=== PATIENT | female | born 1970 ===

== ENCOUNTER 2017-02-16 09:20 | Day surgery (SDC) | payer MEDICAID ==
[2017-02-14 09:30] VITALS: BMI 30.2
[2017-02-16 10:34] VITALS: O2SAT 100
[2017-02-16] MEDS ORDERED: Midazolam 2 MG/2 ML VIAL ONE (13:10)
[2017-02-16] MEDS ORDERED: Lidocaine Hydrochloride 5 ML INJ ONE (13:10)
[2017-02-16] MEDS ORDERED: Propofol 10 mg/ml Inj (20 ML) ONE (13:10)
[2017-02-16] MEDS ORDERED: ceFAZolin IV 1 gm in Dextrose 1 GM/50 ML BAG IVPB ONE (13:19)
[2017-02-16] MEDS ORDERED: Lactated Ringer's 1,000 ML IV ONE ×2 (13:20→14:14)
[2017-02-16] MEDS ORDERED: Oxycodone/Acetaminophen 5/325 mg Tab PO PRN (14:22)
[2017-02-16] MEDS: HYDROmorphone 0.5 mg/0.5 ml ISec IVP PRN ×2 (14:25→14:42)
[2017-02-16 16:04] VITALS: PULSE 58
[2017-02-16 16:11] VITALS: BP 126/77; RESP 18; TEMP 97
--- NOTE | 2017-02-17 09:58 | OP ---
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 PROCEDURE: Wide deep excision of vascular neoplasm of the lower extremity x2 (5 cm and 3 cm). SURGEON: Sunny Coughlin MD TYPE OF ANESTHESIA: General. ESTIMATED BLOOD LOSS: 50 mL POSTOPERATIVE CONDITION: Stable. INDICATIONS FOR SURGERY: This 47-year-old female presented with two painful hemangiomas of her right lower extremity. She will now undergo wide and deep excision of each one. DESCRIPTION OF PROCEDURE: The patient was taken to the operating room, general anesthesia was administered, she was placed in the left lateral decubitus position with the medial portion of her leg facing upward. The left leg was then prepped and draped and elliptical incision was made surrounding the 5 cm neoplasm. It was dissected into the fascial layer and removed. Bleeding was controlled using the Bovie. Larger blood vessel was repaired. Generous tissue flaps were raised and advancement flap closure measuring about 36 sq cm was performed using multiple layers of subcuticular Monocryl and glue. The above was repeated on a smaller 3 cm lesion, approximately 10 cm distal to it. The patient tolerated the procedure well and returned to the recovery room in stable condition. Sunny Coughlin MD
== END 2017-02-16 16:28 | disposition home or self-care (01) ==
LOC: C.SDS 09:20
PROVIDERS: ATTEND Surgery
DX: D18.01 Hemangioma of skin and subcutaneous tissue (principal); I83.91 Asymptomatic varicose veins of right lower extremity
CPT/HCPCS: 11406; 88305; J0690; J1170; J2250; J2405; J2704; J3010; J7120

== ENCOUNTER 2017-12-04 01:41 | Emergency (ER) | payer MEDICAID ==
[2017-12-04 01:42] VITALS: BMI 30.2
[2017-12-04 01:57] VITALS: RESP 14; TEMP 97.8
[2017-12-04 03:01] LABS: BASO # 0.1 K/uL (0.0-0.2); BASO % 1.3 % (0.0-2.0); EOS # 0.4 K/uL (0.0-0.7); EOS % 5.4 % (0.0-4.0); HEMOGLOBIN 14.1 g/dL (11.0-16.0); LYMPH # 2.9 K/uL (1.0-4.3); LYMPH % 39.6 % (20.0-40.0); MEAN CELL VOLUME 90.9 fL (81.0-99.0); MEAN CORPUSCULAR HEMOGLOBIN 31.1 pg (27.0-31.0); MEAN CORPUSCULAR HGB CONC 34.2 g/dL (33.0-37.0); MEAN PLATELET VOLUME 8.9 fL (7.2-11.7); MONO # 0.6 K/uL (0.0-0.8); MONO % 7.7 % (0.0-10.0); NEUT # 3.3 K/uL (1.8-7.0); NRBC % 0.1 % (0.0-2.0); RBC 4.54 Mil/uL (3.80-5.20); RED CELL DISTRIBUTION WIDTH 14.3 % (11.5-14.5); WHITE BLOOD COUNT 7.3 K/uL (4.8-10.8)
[2017-12-04 03:19] LABS: ALB/GLOB RATIO 1.3 (1.0-2.1); ALBUMIN 4.5 g/dL (3.5-5.0); ALT/SGPT 24 U/L (9-52); AST/SGOT 26 U/L (14-36); BLOOD UREA NITROGEN 19 mg/dL (7-17); CALCIUM 9.4 mg/dl (8.6-10.4); GFR AFRICAN-AMERICAN > 60; GFR NON-AFRICAN AMERICAN > 60
--- NOTE | 2017-12-04 04:28 | C.PDOC ---
History Of Present Illness 47 year old female presents to the ER with a complaint of right sided chest pain that began tonight. Patient states the pain radiates to the back and worsens with movement and deep inspiration. Patient admits to ETOH use tonight. Denies Hx of HTN, abdominal pain, SOB, nausea, or vomiting. Time Seen by Provider: 12/04/17 02:19 Chief Complaint (Nursing): Chest Pain History Per: Patient History/Exam Limitations: no limitations Onset/Duration Of Symptoms: Hrs, Waxing/Waning Associated Symptoms: denies: Nausea, Dyspnea, Other (Vomiting, Abdominal pain) Modifying Factors: None Exacerbating Factors: Movement, Deep Breathing Alleviating Factors: None Recent travel outside of the [place]: No Past Medical History Reviewed: Historical Data, Nursing Documentation, Vital Signs Vital Signs: Last Vital Signs Temp 97.8 F 12/04/17 01:54 Pulse 80 12/04/17 04:48 Resp 14 12/04/17 04:48 BP 123/80 12/04/17 04:48 Pulse Ox 96 12/05/17 04:13 - Medical History PMH: Anemia, Anxiety, Asthma (IN CHILDHOOD NO MEDS CURRENTLY), Hypothyroidism, Pneumonia (AGE 12) Denies: Chronic Kidney Disease Family History: States: Unknown Family Hx - Social History Hx Alcohol Use: Yes Hx Substance Use: No - Immunization History Hx Tetanus Toxoid Vaccination: No Hx Influenza Vaccination: No Hx Pneumococcal Vaccination: No Review Of Systems Constitutional: Negative for: Fever, Chills Cardiovascular: Positive for: Chest Pain Respiratory: Negative for: Shortness of Breath Gastrointestinal: Negative for: Nausea, Vomiting, Abdominal Pain Neurological: Negative for: Weakness, Numbness Physical Exam - Physical Exam Appears: Non-toxic Skin: Normal Color, Warm, Dry Head: Atraumatic, Normacephalic Eye(s): bilateral: Normal Inspection, PERRL, EOMI Oral Mucosa: Moist Throat: No Erythema, No Exudate Neck: Normal, Supple Chest: Symmetrical, Tenderness (anterior chest wall) Cardiovascular: Rhythm Regular, No Friction Rub, No Murmur Respiratory: Normal Breath Sounds, No Rales, No Rhonchi, No Wheezing Gastrointestinal/Abdominal: Soft, No Tenderness Back: Normal Inspection, No CVA Tenderness, No Vertebral Tenderness, No Paraspinal Tenderness Extremity: Normal ROM, No Tenderness, No Swelling Neurological/Psych: Oriented x3, Normal Speech, Normal Motor Gait: Steady ED Course And Treatment - Laboratory Results Result Diagrams: 12/04/17 02:58 12/04/17 02:58 ECG: Interpreted By Me, Viewed By Me ECG Rhythm: Sinus Rhythm ECG Interpretation: Normal Interpretation Of ECG: Normal axis, normal R wave progression, normal ST/T waves Rate From EC O2 Sat by Pulse Oximetry: 96 (Room air) Pulse Ox Interpretation: Normal - Radiology CXR: Interpreted by Me, Viewed By Me CXR Interpretation: Yes: No Acute Disease. No: Infiltrates Medical Decision Making Medical Decision Making: EKG, blood work, and CXR ordered, results were negative. The patient was placed on cardiac nurse specialist and has remained in SR. The patient symptoms is pleuritic in nature and patient has a low cardiac risk. (-) hx of smoking, (-) DM, (-) hypercholesterolemia, (-) HTN. Aspirin and pepcid administered. On reevaluation, patient reports improvement of pain, she is resting comfortably in no acute distress, vitals are stable, will discharge home with instructions to follow up with PMD or return if symptoms worsen. Disposition - Disposition Referrals: Renetta Lee MD [Medical Doctor] - Disposition: HOME/ ROUTINE Disposition Time: 04:26 Condition: GOOD Additional Instructions: Follow up with the medical doctor within 1-2 days, Return if worsened. Prescriptions: Ibuprofen [Motrin] 600 mg PO TID #21 tab Instructions: Pleuritic Chest Pain (DC) Forms: [facility] (Spanish) - Clinical Impression Clinical Impression: Pleuritic pain - PA / PATIENT SERVICES TECHNICIAN / Resident Statement MD/DO has reviewed & agrees with the documentation as recorded. - Scribe Statement The provider has reviewed the documentation as recorded by the Scribe Leon Solorzano All medical record entries made by the Scribe were at my direction and personally dictated by me. I have reviewed the chart and agree that the record accurately reflects my personal performance of the history, physical exam, medical decision making, and the department course for this patient. I have also personally directed, reviewed, and agree with the discharge instructions and disposition.
[2017-12-04 04:51] VITALS: BP 123/80; PULSE 80
[2017-12-04 05:49] VITALS: O2SAT 96
--- NOTE | 2017-12-04 09:38 | RAD ---
Date of service: 12/04/2017 PROCEDURE: CHEST RADIOGRAPH, 1 VIEW HISTORY: chest pain COMPARISON: None available. FINDINGS: LUNGS: No acute pulmonary disease appreciated bilaterally. PLEURA: No pneumothorax or pleural fluid seen. CARDIOVASCULAR: Normal. OSSEOUS STRUCTURES: No significant abnormalities. VISUALIZED UPPER ABDOMEN: Normal. OTHER FINDINGS: None. IMPRESSION: No acute cardiopulmonary disease appreciated.
--- NOTE | 2017-12-06 00:08 | CARD ---
APPROVED REPORT Date of service: 12/04/2017 EKG Measurement Heart [id number] <Conclusion> Normal sinus rhythm with sinus arrhythmia Normal ECG
== END 2017-12-04 04:50 | disposition home or self-care (01) ==
LOC: C.ER 01:41
DX: R07.81 Pleurodynia (principal); F41.9 Anxiety disorder, unspecified

== ENCOUNTER 2018-03-10 05:56 | Emergency (ER) | payer MEDICAID ==
[2018-03-10 05:57] VITALS: BMI 30.2
[2018-03-10 06:18] VITALS: BP 126/87; PULSE 82; RESP 20; TEMP 98.7; O2SAT 96
--- NOTE | 2018-03-10 06:36 | C.PDOC ---
History Of Present Illness 48 year old female presents to the ER with a complaint of a puritic rash to the left lower leg for the past 3 days that has worsened today causing pain to the area. Patient reports he had a vein ablation on 03/02/18 and was scheduled for a follow up on 03/07/18, she report to her doctor about the localized pain for she was given pain medications that she could not fill from the pharmacy. Patient now reports moderate puritic rash to the left leg, abdomen, and left upper arm. Denies SOB, difficulty breathing, or difficulty swallowing. Time Seen by Provider: 03/10/18 06:34 Chief Complaint (Nursing): Abnormal Skin Integrity History Per: Patient History/Exam Limitations: no limitations Onset/Duration Of Symptoms: Days (3) Current Symptoms Are (Timing): Still Present Location Of Injury: Left: Leg, Anterior: Abdomen, Arm Quality Of Symptoms: Painful, Other (Puritic) Recent travel outside of the [place]: No Past Medical History Reviewed: Historical Data, Nursing Documentation, Vital Signs Vital Signs: Last Vital Signs Temp 98.7 F 03/10/18 06:19 Pulse 82 03/10/18 06:19 Resp 20 03/10/18 06:19 BP 126/87 03/10/18 06:19 Pulse Ox 96 03/10/18 06:19 - Medical History PMH: Anemia, Anxiety, Asthma (IN CHILDHOOD NO MEDS CURRENTLY), Hypothyroidism, Pneumonia (AGE 12) Denies: Chronic Kidney Disease Family History: States: Unknown Family Hx - Social History Hx Alcohol Use: Yes Hx Substance Use: No - Immunization History Hx Tetanus Toxoid Vaccination: No Hx Influenza Vaccination: No Hx Pneumococcal Vaccination: No Review Of Systems Constitutional: Negative for: Fever, Chills ENT: Negative for: Mouth Swelling, Throat Swelling Respiratory: Negative for: Shortness of Breath, Wheezing Skin: Positive for: Rash Physical Exam - Physical Exam Appears: Non-toxic Skin: Rash (Erythematous papular at different stages from left thigh to lower abdomen and left forearm, no warmth, no pustules, no tenderness on palpation, no purpura, no vesicles.) Head: Atraumatic, Normacephalic Eye(s): bilateral: Normal Inspection Oral Mucosa: Moist Tongue: Normal Appearing, No Swelling Lips: Normal Appearing, No Swelling Throat: Normal, No Other (Swelling) Neck: Normal, Supple, No Other (Swelling) Chest: Symmetrical, No Tenderness Cardiovascular: Rhythm Regular Respiratory: Normal Breath Sounds, No Accessory Muscle Use, No Stridor, No Wheezing Extremity: Normal ROM (x4), No Tenderness, No Calf Tenderness, No Swelling Pulses: Left Dorsalis Pedis: Normal, Right Dorsalis Pedis: Normal Neurological/Psych: Oriented x3, Normal Speech, Normal Motor, Normal Sensation Gait: Steady (observed ambulatory no limp) ED Course And Treatment O2 Sat by Pulse Oximetry: 96 (Room air) Pulse Ox Interpretation: Normal Progress Note: Benadryl, motrin, and prednisone administered. Patient reports improvement of symptoms, she is resting comfortably in the ER in no acute distress, vitals are stable, will discharge home with Rx and instructions to follow up with PMD for further evaluation or return if symptoms worsen. Disposition - Disposition Referrals: Renetta Lee MD [Primary Care Provider] - Disposition: HOME/ ROUTINE Disposition Time: 06:52 Condition: STABLE Additional Instructions: Take meds as directed Follow up with your doctor- meera sorto doctor in 2 says Return to ER if worse Instructions: Kevin (DC) Forms: [email or web address] (Polish) Print Language: SAO TOMEAN - Clinical Impression Clinical Impression: Allergic urticaria - PA / CLERK TYPIST / Resident Statement MD/DO has reviewed & agrees with the documentation as recorded. - Scribe Statement The provider has reviewed the documentation as recorded by the Scribandre Solorzano All medical record entries made by the Scribe were at my direction and personally dictated by me. I have reviewed the chart and agree that the record accurately reflects my personal performance of the history, physical exam, medical decision making, and the department course for this patient. I have also personally directed, reviewed, and agree with the discharge instructions and disposition.
--- NOTE | 2018-03-10 06:48 | C.PDOC ---
Time Seen by Provider: 03/10/18 06:34 Chief Complaint (Nursing): Abnormal Skin Integrity Past Medical History Vital Signs: Last Vital Signs Temp 98.7 F 03/10/18 06:19 Pulse 82 03/10/18 06:19 Resp 20 03/10/18 06:19 BP 126/87 03/10/18 06:19 Pulse Ox 96 03/10/18 06:19 - Medical History PMH: Anemia, Anxiety, Asthma (IN CHILDHOOD NO MEDS CURRENTLY), Hypothyroidism, Pneumonia (AGE 12) Denies: Chronic Kidney Disease Family History: States: Unknown Family Hx - Social History Hx Alcohol Use: Yes Hx Substance Use: No - Immunization History Hx Tetanus Toxoid Vaccination: No Hx Influenza Vaccination: No Hx Pneumococcal Vaccination: No ED Course And Treatment O2 Sat by Pulse Oximetry: 96 Disposition Counseled Patient/Family Regarding: Diagnosis, Need For Followup, Rx Given - Disposition Referrals: Renetta Lee MD [Primary Care Provider] - Disposition: HOME/ ROUTINE Disposition Time: 06:48 Condition: STABLE Additional Instructions: Take meds as directed Follow up with your doctor- meera sorto doctor in 2 says Return to ER if worse Instructions: Kevin LYNCH) Print Language: ALGERIAN - Clinical Impression Clinical Impression: Allergic urticaria
== END 2018-03-10 07:10 | disposition home or self-care (01) ==
LOC: C.ER 05:56 → SUPCPDRO 05:56 → C.ER 07:10
DX: L50.0 Allergic urticaria (principal)

== ENCOUNTER 2018-06-27 10:03 | Outpatient (CLI) | payer MEDICAID | END 2018-06-27 10:04 | disposition home or self-care (01) | LOC: C.MAMMO 10:03 | DX: Z12.31 Encounter for screening mammogram for malignant neoplasm of breast (principal) ==

== ENCOUNTER 2018-09-09 14:15 | Emergency (ER) | payer MEDICAID ==
[2018-09-09 14:15] VITALS: BMI 30.2
[2018-09-09 14:26] VITALS: BP 118/81; PULSE 90; RESP 20; TEMP 99; O2SAT 96
--- NOTE | 2018-09-09 14:58 | C.PDOC ---
History Of Present Illness 48 year old female with PMHx of Hypothyroidism presents to the ED complaining of cough associated with white phlegm for 2 weeks and vomiting since last night. Reports she was taking Nyquil at first but it was not working. States she started taking Mucinex Fast Max 2 days ago every 4 hours. Denies any fever, chills, sore throat, diarrhea, SOB, chest pain, abdominal pain, or any other physical complaints. Denies recent travels, history of seasonal allergies, or sick contacts. Chief Complaint (Nursing): Flu-like Symptoms History Per: Patient History/Exam Limitations: no limitations Onset/Duration Of Symptoms: Days Current Symptoms Are (Timing): Still Present Sick Contacts (Context): None Associated Symptoms: Cough, Nausea, Vomiting. denies: Fever, Chills, Sore Throat, Diarrhea Past Medical History Reviewed: Historical Data, Nursing Documentation, Vital Signs Vital Signs: Last Vital Signs Temp 99 F 09/09/18 14:22 Pulse 90 09/09/18 14:22 Resp 20 09/09/18 14:22 BP 118/81 09/09/18 14:22 Pulse Ox 96 09/09/18 14:22 Primary Care Provider: Renetta Lee - Medical History PMH: Anemia, Anxiety, Asthma (IN CHILDHOOD NO MEDS CURRENTLY), Hypothyroidism, Pneumonia (AGE 12) Denies: Chronic Kidney Disease Other Surgeries: Hx of surgeries Family History: States: No Known Family Hx - Social History Hx Alcohol Use: Yes Hx Substance Use: No - Immunization History Hx Tetanus Toxoid Vaccination: No Hx Influenza Vaccination: No Hx Pneumococcal Vaccination: No Review Of Systems Constitutional: Negative for: Fever, Chills ENT: Negative for: Nose Discharge, Nose Congestion, Throat Pain Cardiovascular: Negative for: Chest Pain Respiratory: Positive for: Cough. Negative for: Shortness of Breath Gastrointestinal: Positive for: Vomiting. Negative for: Abdominal Pain, Diarrhea Neurological: Negative for: Headache Physical Exam - Physical Exam Appears: Non-toxic, No Acute Distress Skin: Warm, Dry, No Rash Head: Normacephalic Eye(s): bilateral: PERRL, EOMI Nose: Normal Oral Mucosa: Moist Tongue: Normal Appearing Lips: Normal Appearing Teeth: Normal Dentition Gingiva: Normal Appearing Throat: Normal, No Erythema, No Exudate Neck: Supple Chest: Symmetrical Cardiovascular: Rhythm Regular Respiratory: Normal Breath Sounds, No Accessory Muscle Use, No Rales, No Rhonchi, No Wheezing Neurological/Psych: Oriented x3, Normal Speech Gait: Steady ED Course And Treatment O2 Sat by Pulse Oximetry: 96 (RA) Pulse Ox Interpretation: Normal Medical Decision Making Medical Decision Making: Plan - Tessalon Perles 200mg PO On reevaluation, patient reports improvement. Patient instructed to follow up with PMD. Patient verbalizes understanding and is in agreement with plan. Patient is stable for discharge. Disposition Counseled Patient/Family Regarding: Diagnosis, Need For Followup, Rx Given - Disposition Referrals: Renetta Lee MD [Medical Doctor] - Disposition: HOME/ ROUTINE Disposition Time: 14:56 Condition: IMPROVED Additional Instructions: continue meds as prescribed rest and hydration follow up with electric range preparer in 1-2 days Return to ED if symptoms worsen continuar los medicamentos segn lo prescrito descanso e hidratacin seguimiento con el pediatra en 1-2 oneil Regrese a la ED si los sntomas empeoran Prescriptions: Benzonatate [Tessalon Perles] 100 mg PO TID #30 sgl Instructions: Cough, Runny Nose, and the Common Cold (DC) Forms: [employer] ([place]) Print Language: KAZAKH - Clinical Impression Clinical Impression: Cough - PA / PHOTO MACHINE OPERATOR / Resident Statement MD/DO has reviewed & agrees with the documentation as recorded. - Scribe Statement The provider has reviewed the documentation as recorded by the Scribe Temitope Hemphill All medical record entries made by the Scribe were at my direction and personally dictated by me. I have reviewed the chart and agree that the record accurately reflects my personal performance of the history, physical exam, medical decision making, and the department course for this patient. I have also personally directed, reviewed, and agree with the discharge instructions and disposition.
== END 2018-09-09 15:17 | disposition home or self-care (01) ==
LOC: C.ER 14:15
DX: R05 Cough (principal); E03.9 Hypothyroidism, unspecified